=== PATIENT | female | born 1980 | race Caucasian/White ===

== ENCOUNTER 2018-09-26 17:41 | Outpatient (REF) | payer OTHER, SELFPAY ==
[2018-09-26 20:57] LABS: HCT 39.3 % (36.0-46.0); HGB 13.7 g/dL (12.0-15.5); Mean Corp. HGB Concentration 34.9 g/dL (32.0-36.0); Mean Corpuscular Volume 83.1 fL (80-95); Mean Platelet Volume 11.1 fL (8.0-11.0); Platelet Count 304 x1000/uL (130-400); RBC 4.73 m/cumm (4.00-5.20); RBC Distribution Width 12.6 % (11.7-14.6); White Blood Cell Count 7.17 k/cumm (4.4-10.8)
[2018-09-26 21:38] LABS: ALT 52 U/L (12-78); AST 22 U/L (15-37); Albumin 4.3 g/dL (3.4-5.0); Alkaline Phosphatase 92 U/L (46-116); Anion Gap 10.2 mmol/L (3-11); BUN 14 mg/dL (7-18); Bilirubin, Total 0.6 mg/dL (0.2-1.0); CO2 30.8 mmol/L (21.0-32.0); CREATININE 0.95 mg/dL (0.55-1.02); Calcium 9.2 mg/dL (8.5-10.1); Chloride 101 mmol/L (98-107); Glucose 130 mg/dL (70-100); Lipase 195 U/L (73-393); Potassium 3.4 mmol/L (3.5-5.1); Sodium 142 mmol/L (136-145); Total Protein 7.9 g/dL (6.4-8.2)
== END 2018-09-26 18:01 ==
LOC: NCHCN 17:41
PROVIDERS: PCP Family Medicine; Visit Provider Family Medicine
DX: R10.9 Unspecified abdominal pain (principal)
CPT/HCPCS: 80053; 83690; 85027

== ENCOUNTER 2018-09-27 11:10 | Emergency (ER) | payer OTHER, SELFPAY ==
[2018-09-27 11:13] VITALS: BP 119/79; PULSE 77; RESP 12; TEMP 36.8; O2SAT 95
--- NOTE | 2018-09-27 11:37 | ED.GENADUL_ITS ---
Discharge Plan Disposition Patient Disposition: HOME Condition: Stable Discharge Details Chief Complaint: Abd Prob Clinical Impression: Biliary colic Primary Care Provider: Toya Clarke ED Provider: Jazlyn Hayes Home Meds and New Rx's Prescriptions: New ondansetron 4 mg tablet,disintegrating 4 mg PO TID PRN (Reason: nausea and vomiting) Qty: 6 RF: 0 Continued omeprazole 20 mg Capsule,Delayed Release(Dr/Ec) 20 mg PO DAILY RF: 0 losartan-hydrochlorothiazide 50-12.5 mg Tablet 1 tab PO DAILY RF: 0 vitamin B complex Capsule 1 cap PO DAILY RF: 0 cholecalciferol (vitamin D3) [Vitamin D3] 1,000 unit Capsule 1,000 unit PO DAILY RF: 0 Pepcid Complete 10-800-165 mg Tablet,Chewable 1 tab PO DAILY RF: 0 omega 1-icd-ojj-fish oil [Fish Oil] 1,000 mg (120 mg-180 mg) Capsule 1 cap PO DAILY RF: 0 Discharge Instructions Instructions: Biliary Colic (ED), Abdominal Pain (ED) Additional Instructions: Alternate tylenol and motrin as needed and directed for pain. Take the Zofran as needed and directed for any nausea or vomiting. Drink plenty of fluids. Limit your amount of fried and fatty food intake as this may worsen gallstones. Call surgery to schedule follow-up appointment for reevaluation. Return immediately to the emergency department any worsening or new concerning symptoms. Referrals: Maddy Matos MD [ [facility] STAFF PHYSICIAN] - Discharge Data Discharge Date/Time-TO BE ENTERED AT DEPARTURE: 09/27/18 15:02 Discharge Physician: Jazlyn Hayes Medical Decision Making 37yo female with a history of GERD and hypertension who presents with burning right-sided abdominal pain for the past 2-3 weeks. Also with intermittent nausea and diarrhea this week. Seen by PCP office yesterday for same complaint and had lab work done but she does not know the results. No labs noted in computer. Vitals within normal limits. Patient afebrile. She appears nontoxic. Her abdomen is soft but is mildly tender in the right mid abdomen, right lower quadrant, left lower quadrant and epigastric region. No right upper quadrant tenderness. Negative Baker's sign. Differential diagnosis includes cholelithiasis, cholecystitis, appendicitis, diverticulitis, ovarian cyst, gastroenteritis. Will place an IV, labs, UA, CT abd/pelvis and give toradol, zofran, pepcid. 1230 --labs and imaging reviewed. Normal white blood cell count. AST 44, remainder of labs unremarkable. Urine negative. CT abdomen notes possible gallbladder disease due to possible gallbladder contraction and mild gallbladder wall thickening not excluded. Recommends gallbladder ultrasound. This was discussed with radiology and Alejandro will be available at 2pm. 1430 -- US notes multiple gallstones with upper limits of normal gallbladder wall thickness but negative sonographic Baker sign and no evidence of cholecystitis. Normal common bile duct. Patient states her pain is improved and she feels good to go home. She is instructed to follow-up with surgery for reevaluation and to discuss possible elective cholecystectomy if pain persists. Patient instructed to alternate Tylenol Motrin for pain. She is instructed to return here immediately with any concerns such as fever, worsening pain, inability to take p.o. Medical Records Medical records reviewed: Yes I reviewed the patient's medical records. Imaging Data Radiologic Study: Radiologist's impression: CT Abdomen and Pelvis With Contrast EXAM DATE/TIME: 09/27/2018 11:36 AM FINDINGS: Lower thorax: No acute findings. ABDOMEN: Liver: Hepatic size upper limits of normal. Gallbladder and bile ducts: The gallbladder appears partially contracted. Mild wall thickening is not excludable. Pancreas: Normal. No ductal dilation. Spleen: Normal. No splenomegaly. Adrenals: Normal. No mass. Kidneys and ureters: Normal. No hydronephrosis. Stomach and bowel: Normal. No obstruction. No mucosal thickening. Appendix: No evidence of appendicitis. PELVIS: Bladder: Unremarkable as visualized. Reproductive: Tiny low-density right adnexal lesion 1.3 cm, probable dominant follicle. ABDOMEN and PELVIS: Intraperitoneal space: Normal. No free air. No significant fluid collection. Bones/joints: Mild lower lumbar spondylosis. Soft tissues: Unremarkable. Vasculature: Normal. No abdominal aortic aneurysm. Lymph nodes: Shotty mesenteric adenopathy noted. IMPRESSION: Possible gallbladder disease versus artifact of contraction. Consider s onography. Radiologic Study #2: Radiologist's impression: US Abdomen Limited EXAM DATE/TIME: 09/27/2018 2:02 PM FINDINGS: Gallbladder: Multiple, mobile gallstones present. Gallbladder wall thickness upper limits of normal. By report, negative sonographic Baker's sign. Common bile duct: Common duct within normal limits. IMPRESSION: Multiple gallstones. If there is concern for cystic duct patency, radionuclide hepatobiliary imaging is sensitive to characterize. Lab Data Lab results reviewed: Yes I reviewed the patient's lab results. Laboratory Tests Range/Units 09/27/18 09/27/18 09/27/18 11:16 11:39 11:40 WBC (4.4-10.8) k/cumm RBC (4.00-5.20) m/cumm Hgb (12.0-15.5) g/dL Hct (36.0-46.0) % MCV (80-95) fL MCH (27.0-33.0) pg MCHC (32.0-36.0) g/dL RDW (11.7-14.6) % Plt Count (130-400) x1000/uL MPV (8.0-11.0) fL Immature Gran % Neutrophils % Lymphocytes % Monocytes % Eosinophils % Basophils % Absolute Neutrophils (1.2-6.7) k/cumm Absolute Lymphocytes (1.2-3.4) k/cumm Absolute Monocytes (0.11-0.7) k/cumm Absolute Eosinophils (0.0-0.7) k/cumm Absolute Basophils (0.0-0.2) k/cumm Differential Comment Sodium (136-145) mmol/L Potassium (3.5-5.1) mmol/L Chloride (98-107) mmol/L Carbon Dioxide (21.0-32.0) mmol/L Anion Gap (3-11) mmol/L BUN (7-18) mg/dL Creatinine (0.55-1.02) mg/dL Estimated GFR/1.73 m2 (mL/min/1.73m2) Glucose (70-100) mg/dL Calcium (8.5-10.1) mg/dL Magnesium (1.8-2.4) mg/dL 2.1 Total Bilirubin (0.2-1.0) mg/dL AST (15-37) U/L ALT (12-78) U/L Alkaline Phosphatase (46-116) U/L Troponin I (0.00-0.06) ng/mL < 0.02 Total Protein (6.4-8.2) g/dL Albumin (3.4-5.0) g/dL Lipase (73-393) U/L 171 Urine Color Cancelled Yellow Urine Clarity Cancelled Clear Urine pH Cancelled 7.0 Ur Specific Callaway Cancelled 1.020 Urine Protein Cancelled Negative Urine Ketones Cancelled Negative Urine Blood Cancelled Negative Urine Nitrite Cancelled Negative Urine Bilirubin Cancelled Negative Urine Urobilinogen Cancelled 0.2 Ur Leukocyte Esterase Cancelled Negative Urine Glucose Cancelled Negative Range/Units 09/27/18 09/27/18 11:40 11:40 WBC (4.4-10.8) k/cumm 7.52 RBC (4.00-5.20) m/cumm 4.83 Hgb (12.0-15.5) g/dL 14.1 Hct (36.0-46.0) % 39.6 MCV (80-95) fL 82.0 MCH (27.0-33.0) pg 29.2 MCHC (32.0-36.0) g/dL 35.6 RDW (11.7-14.6) % 12.5 Plt Count (130-400) x1000/uL 336 MPV (8.0-11.0) fL 10.0 Immature Gran % 0.3 Neutrophils % 61.2 Lymphocytes % 26.9 Monocytes % 9.4 Eosinophils % 0.9 Basophils % 1.3 Absolute Neutrophils (1.2-6.7) k/cumm 4.60 Absolute Lymphocytes (1.2-3.4) k/cumm 2.02 Absolute Monocytes (0.11-0.7) k/cumm 0.71 H Absolute Eosinophils (0.0-0.7) k/cumm 0.07 Absolute Basophils (0.0-0.2) k/cumm 0.10 Differential Comment Agrees w/ instrument Sodium (136-145) mmol/L 141 Potassium (3.5-5.1) mmol/L 3.4 L Chloride (98-107) mmol/L 101 Carbon Dioxide (21.0-32.0) mmol/L 31.7 Anion Gap (3-11) mmol/L 8.3 BUN (7-18) mg/dL 9 Creatinine (0.55-1.02) mg/dL 0.85 Estimated GFR/1.73 m2 (mL/min/1.73m2) >= 60.00 Glucose (70-100) mg/dL 94 Calcium (8.5-10.1) mg/dL 9.4 Magnesium (1.8-2.4) mg/dL Total Bilirubin (0.2-1.0) mg/dL 0.7 AST (15-37) U/L 44 H ALT (12-78) U/L 76 Alkaline Phosphatase (46-116) U/L 94 Troponin I (0.00-0.06) ng/mL Total Protein (6.4-8.2) g/dL 8.3 H Albumin (3.4-5.0) g/dL 4.3 Lipase (73-393) U/L Urine Color Urine Clarity Urine pH Ur Specific Callaway Urine Protein Urine Ketones Urine Blood Urine Nitrite Urine Bilirubin Urine Urobilinogen Ur Leukocyte Esterase Urine Glucose test negative. HPI General Mode of arrival: ambulatory . Date/Time Provider Initiated Documentation: 09/27/18 11:17 . Limitations to Documentation: no limitations . Information obtained by: patient . HPI Narrative: Patient is a 37-year-old female with a history of GERD and hypertension who presents with right-sided abdominal pain for the past 2-3 weeks. Patient states the pain is been getting progressively worse. Patient describes the pain initially is intermittent and is now constant, stabbing, burning and located to the right of her umbilicus with radiation around to the right upper quadrant and around to the lower abdomen. Patient states she had some pain in her shoulder blades last night but not since then. Patient states the pain is better with sitting up and worse whe n laying down. Patient states she had a low-grade fever 100.91-week ago but this resolved for the past few days. Patient states she has occasionally taken Pepcid and Advil for her symptoms. Patient admits to nausea but denies any vomiting. She does admit to diarrhea a few times earlier this week. She denies chest pain, shortness of breath or urinary symptoms. Related Data Home Medications Medication Instructions Recorded Confirmed Pepcid Complete 1 tab PO DAILY 09/27/18 09/27/18 cholecalciferol (vitamin D3) 1,000 unit PO DAILY 09/27/18 09/27/18 [Vitamin D3] losartan-hydrochlorothiazide 1 tab PO DAILY 09/27/18 09/27/18 omega 5-fdd-jqt-fish oil [Fish Oil] 1 cap PO DAILY 09/27/18 09/27/18 omeprazole 20 mg PO DAILY 09/27/18 09/27/18 ondansetron 4 mg PO TID PRN #6 tab 09/27/18 vitamin B complex 1 cap PO DAILY 09/27/18 09/27/18 Previous Rx's Medication Instructions Recorded ondansetron 4 mg PO TID PRN #6 tab 09/27/18 Allergies Allergy/AdvReac Type Severity Reaction Status Date / Time codeine Allergy Unverified 09/27/18 11:19 General Stated Complaint: Abd Prob STEVIE: 3 Review of Systems Review of Systems All systems reviewed & are unremarkable except as noted in HPI and below Constitutional Reports as per HPI, Denies chills and Denies fever(s) Eyes Denies blurry vision ENT Denies dizziness, Denies sore throat and Denies throat swelling Cardiovascular Denies chest pain and Denies dyspnea Respiratory Denies dyspnea Gastrointestinal Reports abdominal pain, Denies diarrhea, Reports nausea and Denies vomiting Genitourinary Denies hematuria and Denies dysuria Musculoskeletal Denies back pain and Denies numbness Integumentary/Breasts Denies lesions and Denies rash Neurologic Denies dizziness and Denies numbness Allergic/Immunologic Denies throat swelling PFSH Medical History GERD (gastroesophageal reflux disease) (Chronic) HTN (hypertension) (Chronic) Surgical History H/O section (Chronic) Social History Smoking/Tobacco Use Status: Never alcohol intake: never substance use type: does not use Exam Const General: cooperative, healthy appearing and no acute distress [facility] Head: normal to inspection Mouth: oral mucosae normal Eyes General: appearance normal, both eyes and all related structures Neck Neck: normal visual inspection Resp Effort & Inspection: normal respiratory effort and able to speak in complete sentences Auscultation: clear to auscultation bilaterally Cardio Rate: regular rate Rhythm: regular rhythm GI Inspection: normal to inspection Palpation: soft and tender (mild in right mid abdomen, RLQ/LLQ, epigastric region) other (negative heel jar sign); obturator sign negative, psoas sign negative and with no rebound tenderness Auscultation: normal bowel sounds Back/Spine/Pelvis Back: no CVA tenderness Skin General skin exam: no rashes or lesions noted Neuro General: alert, awake and oriented x3 Motor: muscle tone normal throughout Extrem General: normal to inspection, full ROM and no edema Psych Appearance: grossly normal Affect: normal affect Course Vital Signs Temperature 98.2 F 09/27/18 11:13 Pulse 77 09/27/18 11:13 Respiratory Rate 12 09/27/18 11:13 Blood Pressure 119/79 09/27/18 11:13 Pulse Oximetry 95 09/27/18 11:13 Temperature 98.2 F 09/27/18 11:13 Temperature Source Temporal Artery Scan 09/27/18 11:13 Pulse 77 09/27/18 11:13 Respiratory Rate 12 09/27/18 11:13 Respiratory Effort Non-Labored 09/27/18 11:18 Blood Pressure 119/79 09/27/18 11:13 Blood Pressure Position Sitting 09/27/18 11:13 Pulse Oximetry 95 09/27/18 11:13 Oxygen Delivery Method Room Air 09/27/18 11:13 Oxygen Flow Rate 0 09/27/18 11:13 Pain Level 0 09/27/18 11:13 Comment 09/27/18 11:13 Lab/Test Results Lab/Test Results: Laboratory Tests Range/Units 09/27/18 11:16 Urine Color Cancelled Urine Clarity Cancelled Urine pH Cancelled Ur Specific [place] Cancelled Urine Protein Cancelled Urine Ketones Cancelled Urine Blood Cancelled Urine Nitrite Cancelled Urine Bilirubin Cancelled Urine Urobilinogen Cancelled Ur Leukocyte Esterase Cancelled Urine Glucose Cancelled
[2018-09-27 11:49] LABS: Bilirubin Negative (Negative); Blood Negative (Negative); Clarity Clear; Glucose Negative (Negative); Ketones Negative (Negative); Leukocyte Esterase Negative (Negative); Nitrite Negative (Negative); Urobilinogen 0.2 EU/dL (Up TO 0.2)
[2018-09-27 11:51] LABS: Abs Immature Grans 0.02 k/cumm (0.0-0.09); Absolute Eosinophil Count 0.07 k/cumm (0.0-0.7); Absolute Lymphocyte Count 2.02 k/cumm (1.2-3.4); Absolute Monocyte Count 0.71 k/cumm (0.11-0.7); Basophils % 1.3; Eosinophils % 0.9; HCT 39.6 % (36.0-46.0); HGB 14.1 g/dL (12.0-15.5); Immature Grans % 0.3; Lymphocytes % 26.9; Mean Corp. HGB Concentration 35.6 g/dL (32.0-36.0); Mean Corpuscular Hemoglobin 29.2 pg (27.0-33.0); Monocytes % 9.4; Neutrophils % 61.2; Platelet Count 336 x1000/uL (130-400); RBC 4.83 m/cumm (4.00-5.20); RBC Distribution Width 12.5 % (11.7-14.6); White Blood Cell Count 7.52 k/cumm (4.4-10.8)
[2018-09-27] MEDS: Ketorolac 30 MG/ML VIAL IVP (11:52)
[2018-09-27] MEDS: Ondansetron 4 MG/2 ML VIAL IVP (11:52)
[2018-09-27] MEDS: Normal Saline Flush 10 ML SYR IVP (11:53)
[2018-09-27] MEDS: FAMOTIDINE 20 MG/50 ML BAG 200 MG IVPB (11:53)
--- NOTE | 2018-09-27 12:10 | DI.CT_ITS ---
SYMPTOM/DIAGNOSIS: LOWER ABD PAIN, R/O APPENDICITIS VS DIVERTICULITIS ABDOMINAL AND PELVIC CT: 09/27 CT examination of the abdomen and pelvis was performed with intravenous infusion of 100 cc Omnipaque 350. Visualized portions of the lung bases are clear. No free intraperitoneal air is seen. The liver and spleen appear normal. Pancreas appears intact. Gallbladder is partially contracted, question mild wall thickening. No biliary dilatation seen. Adrenals and kidneys are unremarkable in appearance. No evidence of urinary tract obstruction. No abdominal aortic aneurysm seen. No major vascular abnormalities seen. No abdominal or pelvic adenopathy. No significant abdominal wall hernia. Appendix appears normal. No evidence of diverticulitis or bowel obstruction. CONCLUSION: No evidence of acute intra-abdominal process.
[2018-09-27 12:12] LABS: ALT 76 U/L (12-78); AST 44 U/L (15-37); Albumin 4.3 g/dL (3.4-5.0); Alkaline Phosphatase 94 U/L (46-116); Anion Gap 8.3 mmol/L (3-11); BUN 9 mg/dL (7-18); Bilirubin, Total 0.7 mg/dL (0.2-1.0); CO2 31.7 mmol/L (21.0-32.0); CREATININE 0.85 mg/dL (0.55-1.02); Calcium 9.4 mg/dL (8.5-10.1); Chloride 101 mmol/L (98-107); Glucose 94 mg/dL (70-100); Potassium 3.4 mmol/L (3.5-5.1); Sodium 141 mmol/L (136-145); Total Protein 8.3 g/dL (6.4-8.2)
[2018-09-27 12:18] LABS: Lipase 171 U/L (73-393); Magnesium 2.1 mg/dL (1.8-2.4)
[2018-09-27 12:19] LABS: Diff Comment Agrees w/ Instrument; Troponin I < 0.02 ng/mL (0.00-0.06)
[2018-09-27] MEDS: Omnipaque 350 MG/ML 100 ML BTL IJ (12:22)
--- NOTE | 2018-09-27 12:33 | DI.VRAD_ITS ---
EXAM: CT Abdomen and Pelvis With Contrast EXAM DATE/TIME: 09/27/2018 11:36 AM CLINICAL HISTORY: 37 years old, female; Pain; Abdominal pain; Localized; Right upper quadrant (ruq); Patient HX: Ruq pain x2 weeks, nausea no vomiting. TECHNIQUE: Axial computed tomography images of the abdomen and pelvis with intravenous contrast. All CT scans at this facility use at least one of these dose optimization techniques: automated exposure control; mA and/or kV adjustment per patient size (includes targeted exams where dose is matched to clinical indication); or iterative reconstruction. Coronal and sagittal reformatted images were created and reviewed. CONTRAST: 100 ml of omnipaque 350 administered intravenously. COMPARISON: No relevant prior studies available. FINDINGS: Lower thorax: No acute findings. ABDOMEN: Liver: Hepatic size upper limits of normal. Gallbladder and bile ducts: The gallbladder appears partially contracted. Mild wall thickening is not excludable. Pancreas: Normal. No ductal dilation. Spleen: Normal. No splenomegaly. Adrenals: Normal. No mass. Kidneys and ureters: Normal. No hydronephrosis. Stomach and bowel: Normal. No obstruction. No mucosal thickening. Appendix: No evidence of appendicitis. PELVIS: Bladder: Unremarkable as visualized. Reproductive: Tiny low-density right adnexal lesion 1.3 cm, probable dominant follicle. ABDOMEN and PELVIS: Intraperitoneal space: Normal. No free air. No significant fluid collection. Bones/joints: Mild lower lumbar spondylosis. Soft tissues: Unremarkable. Vasculature: Normal. No abdominal aortic aneurysm. Lymph nodes: Shotty mesenteric adenopathy noted. IMPRESSION: Possible gallbladder disease versus artifact of contraction. Consider sonography. COMMENT: Preliminary interpretation is based on receipt of 298 image(s). A final report will be issued subsequently. Dictated and Authenticated by: Sheryl Luke MD. Ordering:JOHN Hobson MD
--- NOTE | 2018-09-27 12:37 | DI.US_ITS ---
SYMPTOM/DIAGNOSIS: GB THICKENING, CONTRACTED, R/O CHOLECYSTITIS ABDOMINAL ULTRASOUND: 09/27/18 The visualized liver parenchyma is normal in appearance. Note is made of multiple gallstones. Gallbladder wall is at the upper limits of normal in thickness at about 3 mm. No biliary dilatation is seen. The pancreas appears intact as visualized. Kidneys and spleen appear normal. Abdominal aorta is of normal diameter. CONCLUSION: Cholelithiasis. Negative sonographic Baker's sign. Gallbladder wall at the upper limits of normal in thickness at 3 mm.
--- NOTE | 2018-09-27 14:14 | DI.VRAD_ITS ---
EXAM: US Abdomen Limited EXAM DATE/TIME: 09/27/2018 2:02 PM CLINICAL HISTORY: 37 years old, female; Signs and symptoms; Other: Ruq pain; ? Contracted gallbladder on CT; R/O cholecystitis TECHNIQUE: Real-time ultrasound of the abdomen with image documentation. Examination is focused on the region of clinical interest. COMPARISON: CT ABDOMEN PELVIS W 09/27/2018 12:05 PM FINDINGS: Gallbladder: Multiple, mobile gallstones present. Gallbladder wall thickness upper limits of normal. By report, negative sonographic Baker's sign. Common bile duct: Common duct within normal limits. IMPRESSION: Multiple gallstones. If there is concern for cystic duct patency, radionuclide hepatobiliary imaging is sensitive to characterize. COMMENT: Preliminary interpretation is based on receipt of 38 image(s). A final report will be issued subsequently. Dictated and Authenticated by: Sheryl Luke MD. Ordering:JOHN Hobson MD
[2018-09-27 15:02] VITALS: BP 128/74; PULSE 77; RESP 12; TEMP 37; O2SAT 97
== END 2018-09-27 15:02 | disposition home or self-care (01) ==
PROVIDERS: Emergency Provider Physician Assistant; PCP Family Medicine
DX: K80.20 Calculus of gallbladder without cholecystitis without obstruction (principal); R11.0 Nausea; R19.7 Diarrhea, unspecified; I10 Essential (primary) hypertension
CPT/HCPCS: 36415; 80053; 81025; 83690; 93005; 96365; 96375; 99285; 74177; 76705; 81003; 83735; 84484; 85025; 93010; J1885; J2405; J3490

== ENCOUNTER → 2018-10-02 14:01 | Outpatient (BNVA) | payer OTHER, SELFPAY | PROVIDERS: PCP Family Medicine; Referring Provider Family Medicine; Visit Provider Physical Therapy Assistant | DX: K80.20 Calculus of gallbladder without cholecystitis without obstruction (principal); I10 Essential (primary) hypertension | CPT/HCPCS: 99213 ==

== ENCOUNTER 2018-10-14 10:19 | Day surgery (SDC) | payer OTHER, SELFPAY ==
[2018-10-14] VITALS (8 sets, daily range): BP systolic 100–134; BP diastolic 64–90; PULSE 54–84; RESP 12–18; TEMP 36.4–37.7; O2SAT 97–100
[2018-10-14] MEDS: Lactated Ringers 1,000 ML 80 ML IV (11:25)
--- NOTE | 2018-10-14 11:37 | W.PM.OP ---
Date of service: 10/14/18 Time of Service: 11:37 Operative Note DATE OF PROCEDURE: 10/14/18 PRE-OP DIAGNOSIS: incarcerated incisional epigastric hernia POST-OP DIAGNOSIS: same PROCEDURE: primary repair of incarcerated incision hernia SURGEON: Leroy Shen III ASSISTING SURGEON: Selam Duran ANESTHESIA: GETA ESTIMATED BLOOD LOSS: 10 PATHOLOGY: other COMPLICATIONS: None Patient was transported to: PACU Patient's condition: stable Indications: 1.9x1.4cm defect measured on ct, option to do open primary repair pt explained the [facility] Findings: large incarcerated incisional hernia Procedure Description: pt underwent TAP abd block, timeout done abd preped and draped local given, ioban applied 3cm incision blunt disection to the hernia the defect was identified and was as big as my index finger there was a considerable incarcerated fat most likely falciform this could not be reduced and this was amputated with cautery the defect was closed with 5 interupted vertical matress o-prolene copious irrigation layered closure of the wound with 2-0 vicryl, 4-0 monocryl and dermabond debriefing done pt dc home pt notified of case findings
[2018-10-14] MEDS: Bupivacaine 0.25% Pres-Free 30 ML VIAL ×2 (14:30→16:00)
[2018-10-14] MEDS: Bupivacaine 0.25% Pres-Free 10 ML VIAL (14:30)
--- NOTE | 2018-10-14 15:55 | GB_PTH ---
PATIENT: DAVID HERNANDEZ LOC: [facility] U#:[id number] AGE/SX: 37/F ROOM: RE10/14/[address]: Leroy Shen III : 1980 BED: DIS: 10/14/2018 SPEC #: [id number] RECD: 10/14/18 17:42 STATUS: ASHELY GE #: [id number] NAGI: 10/14/18 15:[address]: Leroy Shen III DEPT: Surgical Specimen RECD BY: Corine Nova ENTERED: 10/14/18 17:42 SP TYPE: GB OTHR DR: Toya Clarke Tissues: 1 - GALLBLADDER Procedures: GROSS AND MICRO LEVEL 3 Comments: [id number]
[2018-10-14] MEDS: Lidocaine 1% Multi-Dose 50 ML VIAL (16:00)
--- NOTE | 2018-10-14 16:10 | W.PM.DSUDISC ---
Discharge Plan Disposition Patient Disposition: HOME Condition: Stable Discharge Details Reason For Visit: symptomatic Cholecystitis Attending Provider: Leroy Shen III Primary Care Provider: Toya Clarke Home Meds and New Rx's Prescriptions: New tramadol 50 mg tablet 50 mg PO Q6H PRN (Reason: pain) Qty: 14 RF: 0 acetaminophen [Tylenol 8 Hour] 650 mg tablet extended release 650 mg PO Q8H PRN (Reason: fever or pain) Qty: 14 RF: 0 ibuprofen 600 mg tablet 600 mg PO TID PRN (Reason: fever or pain) Qty: 20 RF: 0 Continued omeprazole 20 mg Capsule,Delayed Release(Dr/Ec) 20 mg PO DAILY RF: 0 losartan-hydrochlorothiazide 50-12.5 mg Tablet 1 tab PO DAILY RF: 0 vitamin B complex Capsule 1 cap PO DAILY RF: 0 cholecalciferol (vitamin D3) [Vitamin D3] 1,000 unit Capsule 1,000 unit PO DAILY RF: 0 omega 3-mjq-xny-fish oil [Fish Oil] 1,000 mg (120 mg-180 mg) Capsule 1 cap PO DAILY RF: 0 ondansetron 4 mg tablet,disintegrating 4 mg PO TID PRN (Reason: nausea and vomiting) Qty: 6 RF: 0 elderberry fruit-honey 0.7-3 gram/7.5 mL Liquid RF: 0 Discharge Instructions Referrals: Leroy Shen III, DO [OSTEOPATHIC DOCTOR] - 10/20/18 11:00 am Activity:: Activity as Tolerated Remove Dressings/Wound Care:: 24 hours Shower/Bathe:: 24 hours Diet:: As Tolerated Discharge Orders Discharge Orders: Discharge Order (Routine); Ordered 10/14/18 Ordered By: Leroy Shen III DS: Diagnosis Discharge Diagnosis (1) Symptomatic cholelithiasis: Start date: 10/14/18 Start time: 16:10 Status: Acute
--- NOTE | 2018-10-14 16:17 | W.PM.OP ---
Date of service: 10/14/18 Time of Service: 16:17 Operative Note DATE OF PROCEDURE: 10/14/18 PRE-OP DIAGNOSIS: symptomatic dariela POST-OP DIAGNOSIS: same PROCEDURE: lap dariela SURGEON: Leroy Shen III ASSISTING SURGEON: Selam Duran ANESTHESIA: GETA ESTIMATED BLOOD LOSS: 10 PATHOLOGY: other COMPLICATIONS: Other (bile and stone spillage) Patient was transported to: PACU Patient's condition: stable Indications: pain in ruq Findings: floppy GB with the cystic duct twisted Procedure Description: pt consent obtained, All RBA dw her in detail she received a tap block she had gen anesthesia, time-out done abd prepped and draped in sterile fashion local given and the first port was the supraumbilical placed Hasan the abd inflated to 15mm/mq the three 5mm RUQ placed under direct vision the GB was floppy with an apparent twist at the cystic duct the GB was dissected and a structure behind the node was identified and this was tented and causing the twist of the cystic duct this was isolated and clipped x2 and transected once this was done the cystic duct straightened out and this was easily dissected 2 clips proximal and 2 distal were placed and the duct transected the GB owen at the dome perforated the GB and there was bile and stone spillage this was suctioned up as best we could with 2liters of saline the GB was dissected off the liver bed and placed in the endocatch bag and removed from the abdomen all ports removed under direct vision the facial stitches were tied layered closure of all wound debriefing done
[2018-10-14] MEDS: fentaNYL 100 MCG/2 ML VIAL IVP ×2 (16:35→16:50)
[2018-10-14] MEDS: HYDROmorphone 2 MG/ML VIAL IVP (16:45)
== END 2018-10-14 18:58 | disposition home or self-care (01) ==
PROVIDERS: PCP Family Medicine; Visit Provider Surgery
PROC: 0FT44ZZ Resection of Gallbladder, Percutaneous Endoscopic Approach (ICD-10-PCS; CPT 47562; principal; 2018-10-14 12:00)
DX: K80.10 Calculus of gallbladder with chronic cholecystitis without obstruction (principal); K82.4 Cholesterolosis of gallbladder; R10.11 Right upper quadrant pain; K21.9 Gastro-esophageal reflux disease without esophagitis; I10 Essential (primary) hypertension
CPT/HCPCS: 47562; 76942; 81025; 88304; J0690; J1100; J1885; J2250; J2405; J3010

== ENCOUNTER → 2018-10-20 10:44 | Outpatient (BNVA) | payer OTHER, SELFPAY | PROVIDERS: PCP Family Medicine; Referring Provider Family Medicine; Visit Provider Surgery | DX: Z90.49 Acquired absence of other specified parts of digestive tract; I10 Essential (primary) hypertension; Z48.815 Encounter for surgical aftercare following surgery on the digestive system ==

== ENCOUNTER 2018-10-24 07:40 | Emergency (ER) | payer OTHER, SELFPAY ==
[2018-10-24] VITALS (10 sets, daily range): BP systolic 118–135; BP diastolic 78–85; PULSE 60–77; RESP 9–18; TEMP 37.1; O2SAT 98–100
--- NOTE | 2018-10-24 08:28 | W.ED.GENAD ---
Discharge Plan Disposition Patient Disposition: HOME Condition: Improving Discharge Details Chief Complaint: Abd Prob Clinical Impression: Postoperative abdominal pain Primary Care Provider: Toya Clarke ED Provider: Rolan Crooks Home Meds and New Rx's Prescriptions: No Action omeprazole 20 mg Capsule,Delayed Release(Dr/Ec) 20 mg PO DAILY RF: 0 losartan-hydrochlorothiazide 50-12.5 mg Tablet 1 tab PO DAILY RF: 0 vitamin B complex Capsule 1 cap PO DAILY RF: 0 cholecalciferol (vitamin D3) [Vitamin D3] 1,000 unit Capsule 1,000 unit PO DAILY RF: 0 omega 0-hwn-lxm-fish oil [Fish Oil] 1,000 mg (120 mg-180 mg) Capsule 1 cap PO DAILY RF: 0 ondansetron 4 mg tablet,disintegrating 4 mg PO TID PRN (Reason: nausea and vomiting) Qty: 6 RF: 0 elderberry fruit-honey 0.7-3 gram/7.5 mL Liquid RF: 0 tramadol 50 mg tablet 50 mg PO Q6H PRN (Reason: pain) Qty: 14 RF: 0 acetaminophen [Tylenol 8 Hour] 650 mg tablet extended release 650 mg PO Q8H PRN (Reason: fever or pain) Qty: 14 RF: 0 ibuprofen 600 mg tablet 600 mg PO TID PRN (Reason: fever or pain) Qty: 20 RF: 0 Discharge Instructions Instructions: Abdominal Pain (ED) Additional Instructions: Return to the emergency department for any fever chills, significant abdominal pain or discomfort, nausea vomiting or any further concerns. Otherwise you may continue to take pggi-hqo-gslfwls pain medication as needed for discomfort and follow-up with general surgery as needed. Referrals: [facility] [Provider Group] (Call the office and follow-up with general surgery as needed for any further reassessment. ) Discharge Data Discharge Date/Time-TO BE ENTERED AT DEPARTURE: 10/24/18 13:06 Medical Decision Making Patient presenting to the emergency department for chief complaint of abdominal pain. Patient states that she had a cholecystectomy approximate 10 days ago and this morning was stretching in bed and felt a pulling, tearing sensation in her abdomen with pain radiating to her back that was sudden sharp and intense. Patient took 2 ibuprofen along with her normal medications. She does state some mild associated nausea but all symptoms have started to resolve and there is only a dull ache within the abdomen now. Patient denies any fever chills, vomiting, diarrhea or constipation, or other medical complaints at this time. Physical exam shows a soft nonrigid abdomen with normal active bowel sounds, no palpable mass or hematoma, mild tenderness noted to the right upper quadrant otherwise benign abdominal exam. Given recent surgery I feel that high likelihood of patient disrupting possible sutures postsurgical. Given normal vital signs and unremarkable physical exam except for mild expected tenderness to the right upper quadrant do not feel that any labs or imaging is needed at this time. Consulted with general surgery and Dr. Shen stated he would recommend doing CT abdomen pelvis with oral contrast to evaluate for any postsurgical complications. Reviewed patient's labs and they are unremarkable. Pending CT scan with oral contrast patient did state that she previously had a very small episode after CT scan with IV contrast where she had some redness to her left arm that went away very fast after receiving contrast. Patient denies any swelling of lips tongue or mouth, any difficulty breathing, any diffuse hives. Will monitor patient and give Benadryl for any potential reaction but initially this does not sound anaphylactoid in nature. Just prior to patient going for CT scan she stated some slight discomfort to her external neck but denied any itchy throat, swelling of lips times mouth, any chest pain or difficulty breathing. Physical exam is unremarkable except for subjective sensation. Did speak with radiologist Dr. Jolley whom did recommend patient receive 40 mg of Solu-Medrol prior to study. Patient was also given IV Zantac as precautionary . Consent with patient risk versus benefit of IV contrast for CT scan and she gave verbal consent to proceed with procedure understanding that this may lead to anaphylaxis type reaction but that we would monitor her condition. CT scan was reviewed and interpreted as no acute findings these findings were discussed with radiologist. Patient was reassessed and still continue to report improvement of symptoms. I did speak with Dr. Shen whom stated patient would be safe to be discharged to follow-up with surgical office for any further reassessment as needed. Patient encouraged to use kqem-cow-byfiswq pain medication and return for any new or worsening symptoms. After discussion of diagnosis and plan of care patient has no further needs, questions, or concerns and states clear understanding to return to the emergency department for any worsening symptoms. HPI General Mode of arrival: ambulatory. Date/Time Provider Initiated Documentation: 10/24/18 08:03. Limitations to Documentation: no limitations. Information obtained by: patient, RN notes reviewed and old records reviewed. History of Present Illness 37 year old F presents to the emergency department with the chief complaint of Abdominal pain, described as mild, with intensity rated at 3. Quality is described as aching, and is localized to the right. Patient reports radiation to back. Patient started experiencing this hour(s) (2) and it has been constant (But improving). Patient notes no other symptoms.. Patient did receive the following treatments prior to arrival, NSAID Related Data Home Medications Medication Instructions Recorded Confirmed cholecalciferol (vitamin D3) 1,000 unit PO DAILY 09/27/18 10/24/18 [Vitamin D3] losartan-hydrochlorothiazide 1 tab PO DAILY 09/27/18 10/24/18 omega 5-car-cux-fish oil [Fish Oil] 1 cap PO DAILY 09/27/18 10/24/18 omeprazole 20 mg PO DAILY 09/27/18 10/24/18 ondansetron 4 mg PO TID PRN #6 tab 09/27/18 10/24/18 vitamin B complex 1 cap PO DAILY 09/27/18 10/24/18 acetaminophen [Tylenol 8 Hour] 650 mg PO Q8H PRN #14 tab 10/14/18 10/24/18 elderberry fruit-honey 10/14/18 ibuprofen 600 mg PO TID PRN #20 tab 10/14/18 10/24/18 tramadol 50 mg PO Q6H PRN #14 tab 10/14/18 10/24/18 Previous Rx's Medication Instructions Recorded ondansetron 4 mg PO TID PRN #6 tab 09/27/18 acetaminophen [Tylenol 8 Hour] 650 mg PO Q8H PRN #14 tab 10/14/18 ibuprofen 600 mg PO TID PRN #20 tab 10/14/18 tramadol 50 mg PO Q6H PRN #14 tab 10/14/18 Allergies Allergy/AdvReac Type Severity Reaction Status Date / Time codeine Allergy Unknown Unverified 10/24/18 07:49 General Stated Complaint: Abd Prob STEVIE: 3 Review of Systems Constitutional Denies chills, Denies fever(s) and Denies poor appetite Cardiovascular Denies chest pain and Denies dyspnea Respiratory Denies dyspnea Gastrointestinal Reports as per HPI, Reports abdominal pain, Denies melena, Denies change in bowel habits, Denies constipation, Denies diarrhea, Reports nausea and Denies vomiting Genitourinary Denies hematuria, Denies urinary incontinence, Denies urinary hesitancy and Denies urinary urgency Integumentary/Breasts Denies rash [facility] Medical History Incarcerated incisional hernia (Acute) GERD (gastroesophageal reflux disease) (Chronic) HTN (hypertension) (Chronic) Surgical History Hx laparoscopic cholecystectomy (Resolved 10/14/18) H/O section (Chronic) Social History Smoking/Tobacco Use Status: Never alcohol intake: never substance use type: does not use Exam Const General: cooperative Orientation: alert, awake and oriented x3 Resp Effort & Inspection: normal respiratory effort and able to speak in complete sentences Auscultation: clear to auscultation bilaterally Cardio Rate: regular rate Rhythm: regular rhythm Heart Sounds: S1 normal and S2 normal GI Inspection: incision (3 well healing incisions non-dehisced, no erythema, closed by skin adhesive) Palpation: soft, no hepatosplenomegaly, not firm, no guarding, no masses, no pulsatile masses, not rigid, no splenomegaly and tender in the RUQ Auscultation: normal bowel sounds Back/Spine/Pelvis Back: no CVA tenderness Neuro General: alert, awake, oriented x3, gait normal and moves all extremities Course Vital Signs Temperature 37.1 C 10/24/18 07:46 Pulse 63 10/24/18 07:46 Respiratory Rate 18 10/24/18 07:46 Blood Pressure 118/78 10/24/18 07:46 Pulse Oximetry 98 10/24/18 07:46 Temperature 37.1 C 10/24/18 07:46 Temperature Source Temporal Artery Scan 10/24/18 07:46 Pulse 63 10/24/18 07:46 Respiratory Rate 18 10/24/18 07:46 Respiratory Effort 10/24/18 07:51 Blood Pressure 118/78 10/24/18 07:46 Blood Pressure Position Sitting 10/24/18 07:46 Pulse Oximetry 98 10/24/18 07:46 Oxygen Delivery Method Room Air 10/24/18 07:46 Oxygen Flow Rate 0 10/24/18 07:46 Pain Level 8 10/24/18 07:46 Lab/Test Results Lab/Test Results: POC- Test(urine) Negative
--- NOTE | 2018-10-24 08:30 | NUR.NOTE ---
Nursing Note: Pt. states pain and nausea are better.
--- NOTE | 2018-10-24 08:34 | ED.GENADUL_ITS ---
Discharge Plan Disposition Patient Disposition: HOME Condition: Improving Discharge Details Chief Complaint: Abd Prob Clinical Impression: Postoperative abdominal pain Primary Care Provider: Toya Clarke ED Provider: Rolan Crooks Home Meds and New Rx's Prescriptions: No Action omeprazole 20 mg Capsule,Delayed Release(Dr/Ec) 20 mg PO DAILY RF: 0 losartan-hydrochlorothiazide 50-12.5 mg Tablet 1 tab PO DAILY RF: 0 vitamin B complex Capsule 1 cap PO DAILY RF: 0 cholecalciferol (vitamin D3) [Vitamin D3] 1,000 unit Capsule 1,000 unit PO DAILY RF: 0 omega 6-ujp-mdv-fish oil [Fish Oil] 1,000 mg (120 mg-180 mg) Capsule 1 cap PO DAILY RF: 0 ondansetron 4 mg tablet,disintegrating 4 mg PO TID PRN (Reason: nausea and vomiting) Qty: 6 RF: 0 elderberry fruit-honey 0.7-3 gram/7.5 mL Liquid RF: 0 tramadol 50 mg tablet 50 mg PO Q6H PRN (Reason: pain) Qty: 14 RF: 0 acetaminophen [Tylenol 8 Hour] 650 mg tablet extended release 650 mg PO Q8H PRN (Reason: fever or pain) Qty: 14 RF: 0 ibuprofen 600 mg tablet 600 mg PO TID PRN (Reason: fever or pain) Qty: 20 RF: 0 Discharge Instructions Instructions: Abdominal Pain (ED) Additional Instructions: Return to the emergency department for any fever chills, significant abdominal pain or discomfort, nausea vomiting or any further concerns. Otherwise you may continue to take hore-zau-beidfie pain medication as needed for discomfort and follow-up with general surgery as needed. Referrals: [facility] [Provider Group] (Call the office and follow-up with general surgery as needed for any further reassessment. ) Discharge Data Discharge Date/Time-TO BE ENTERED AT DEPARTURE: 10/24/18 13:06 Medical Decision Making Patient presenting to the emergency department for chief complaint of abdominal pain. Patient states that she had a cholecystectomy approximate 10 days ago and this morning was stretching in bed and felt a pulling, tearing sensation in her abdomen with pain radiating to her back that was sudden sharp and intense. Patient took 2 ibuprofen along with her normal medications. She does state some mild associated nausea but all symptoms have started to resolve and there is only a dull ache within the abdomen now. Patient denies any fever chills, vomiting, diarrhea or constipation, or other medical complaints at this time. Physical exam shows a soft nonrigid abdomen with normal active bowel sounds, no palpable mass or hematoma, mild tenderness noted to the right upper quadrant otherwise benign abdominal exam. Given recent surgery I feel that high likelihood of patient disrupting possible sutures postsurgical. Given normal vital signs and unremarkable physical exam except for mild expected tenderness to the right upper quadrant do not feel that any labs or imaging is needed at this time. Consulted with general surgery and Dr. Shen stated he would recommend doing CT abdomen pelvis with oral contrast to evaluate for any p ostsurgical complications. Reviewed patient's labs and they are unremarkable. Pending CT scan with oral contrast patient did state that she previously had a very small episode after CT scan with IV contrast where she had some redness to her left arm that went away very fast after receiving contrast. Patient denies any swelling of lips tongue or mouth, any difficulty breathing, any diffuse hives. Will monitor patient and give Benadryl for any potential reaction but initially this does not sound anaphylactoid in nature. Just prior to patient going for CT scan she stated some slight discomfort to her external neck but denied any itchy throat, swelling of lips times mouth, any chest pain or difficulty breathing. Physical exam is unremarkable except for subjective sensation. Did speak with radiologist Dr. Jolley whom did recommend patient receive 40 mg of Solu-Medrol prior to study. Patient was also given IV Zantac as precautionary . Consent with patient risk versus benefit of IV c ontrast for CT scan and she gave verbal consent to proceed with procedure understanding that this may lead to anaphylaxis type reaction but that we would monitor her condition. CT scan was reviewed and interpreted as no acute findings these findings were discussed with radiologist. Patient was reassessed and still continue to report improvement of symptoms. I did speak with Dr. Shen whom stated patient would be safe to be discharged to follow-up with surgical office for any further reassessment as needed. Patient encouraged to use xmpm-scf-fzctzay pain medication and return for any new or worsening symptoms. After discussion of diagnosis and plan of care patient has no further needs, questions, or concerns and states clear understanding to return to the emergency department for any worsening symptoms. HPI General Mode of arrival: ambulatory . Date/Time Provider Initiated Documentation: 10/24/18 08:03 . Limitations to Documentation: no limitations . Information obtained by: patient, RN notes reviewed and old records reviewed . History of Present Illness 37 year old F presents to the emergency department with the chief complaint of Abdominal pain, described as mild, with intensity rated at 3. Quality is described as aching, and is localized to the right. Patient reports radiation to back. Patient started experiencing this hour(s) (2) and it has been constant (But improving). Patient notes no other symptoms.. Patient did receive the following treatments prior to arrival, NSAID Related Data Home Medications Medication Instructions Recorded Confirmed cholecalciferol (vitamin D3) 1,000 unit PO DAILY 09/27/18 10/24/18 [Vitamin D3] losartan-hydrochlorothiazide 1 tab PO DAILY 09/27/18 10/24/18 omega 4-cwv-igd-fish oil [Fish Oil] 1 cap PO DAILY 09/27/18 10/24/18 omeprazole 20 mg PO DAILY 09/27/18 10/24/18 ondansetron 4 mg PO TID PRN #6 tab 09/27/18 10/24/18 vitamin B complex 1 cap PO DAILY 09/27/18 10/24/18 acetaminophen [Tylenol 8 Hour] 650 mg PO Q8H PRN #14 tab 10/14/18 10/24/18 elderberry fruit-honey 10/14/18 ibuprofen 600 mg PO TID PRN #20 tab 10/14/18 10/24/18 tramadol 50 mg PO Q6H PRN #14 tab 10/14/18 10/24/18 Previous Rx's Medication Instructions Recorded ondansetron 4 mg PO TID PRN #6 tab 09/27/18 acetaminophen [Tylenol 8 Hour] 650 mg PO Q8H PRN #14 tab 10/14/18 ibuprofen 600 mg PO TID PRN #20 tab 10/14/18 tramadol 50 mg PO Q6H PRN #14 tab 10/14/18 Allergies Allergy/AdvReac Type Severity Reaction Status Date / Time codeine Allergy Unknown Unverified 10/24/18 07:49 General Stated Complaint: Abd Prob STEVIE: 3 Review of Systems Constitutional Denies chills, Denies fever(s) and Denies poor appetite Cardiovascular Denies chest pain and Denies dyspnea Respiratory Denies dyspnea Gastrointestinal Reports as per HPI, Reports abdominal pain, Denies melena, Denies change in bowel habits, Denies constipation, Denies diarrhea, Reports nausea and Denies vomiting Genitourinary Denies hematuria, Denies urinary incontinence, Denies urinary hesitancy and Denies urinary urgency Integumentary/Breasts Denies rash [facility] Medical History Incarcerated incisional hernia (Acute) GERD (gastroesophageal reflux disease) (Chronic) HTN (hypertension) (Chronic) Surgical History Hx laparoscopic cholecystectomy (Resolved 10/14/18) H/O section (Chronic) Social History Smoking/Tobacco Use Status: Never alcohol intake: never substance use type: does not use Exam Const General: cooperative Orientation: alert, awake and oriented x3 Resp Effort & Inspection: normal respiratory effort and able to speak in complete sentences Auscultation: clear to auscultation bilaterally Cardio Rate: regular rate Rhythm: regular rhythm Heart Sounds: S1 normal and S2 normal GI Inspection: incision (3 well healing incisions non-dehisced, no erythema, closed by skin adhesive) Palpation: soft, no hepatosplenomegaly, not firm, no guarding, no masses, no pulsatile masses, not rigid, no splenomegaly and tender in the RUQ Auscultation: normal bowel sounds Back/Spine/Pelvis Back: no CVA tenderness Neuro General: alert, awake, oriented x3, gait normal and moves all extremities Course Vital Signs Temperature 37.1 C 10/24/18 07:46 Pulse 63 10/24/18 07:46 Respiratory Rate 18 10/24/18 07:46 Blood Pressure 118/78 10/24/18 07:46 Pulse Oximetry 98 10/24/18 07:46 Temperature 37.1 C 10/24/18 07:46 Temperature Source Temporal Artery Scan 10/24/18 07:46 Pulse 63 10/24/18 07:46 Respiratory Rate 18 10/24/18 07:46 Respiratory Effort 10/24/18 07:51 Blood Pressure 118/78 10/24/18 07:46 Blood Pressure Position Sitting 10/24/18 07:46 Pulse Oximetry 98 01/18/19 07:46 Oxygen Delivery Method Room Air 10/24/18 07:46 Oxygen Flow Rate 0 10/24/18 07:46 Pain Level 8 10/24/18 07:46 Lab/Test Results Lab/Test Results: POC- Test(urine) Negative
--- NOTE | 2018-10-24 08:37 | DI.CT_ITS ---
SYMPTOMS/DIAGNOSIS: POSTOPERATIVE PAIN CT SCAN OF THE ABDOMEN AND PELVIS: CT scan of the abdomen and pelvis was performed following the uneventful administration of intravenous contrast material. The liver is normal in size. No suspicious hepatic mass is seen. The portal, superior mesenteric and splenic veins are patent. The patient is status post cholecystectomy. There is no biliary ductal dilatation. The spleen is unremarkable as are the pancreas and adrenal glands. The kidneys show normal and symmetric enhancement. No evidence of a solid renal mass or obstruction. The urinary bladder is intact. The reproductive organs are unremarkable as visualized. The bowel shows no evidence of obstruction or inflammation. There is a normal appendix present in the right lower quadrant. The aorta is of normal caliber with minimal atherosclerosis. No significant abdominal or pelvic adenopathy, ascites or pneumoperitoneum is present. There is no evidence of an anterior abdominal wall hernia. Degenerative changes are seen in the spine. IMPRESSION: 1. Status post cholecystectomy. No biliary ductal dilatation. 2. No evidence of an acute abdomen. 3. No evidence of an anterior abdominal wall hernia. The findings were discussed with the emergency department on the date of the examination.
--- NOTE | 2018-10-24 08:47 | NUR.NOTE ---
Nursing Note: MD Shen of surgery is at the bedside.
[2018-10-24 08:48] LABS: Abs Immature Grans 0.02 k/cumm (0.0-0.09); Absolute Basophil Count 0.04 k/cumm (0.0-0.2); Absolute Eosinophil Count 0.23 k/cumm (0.0-0.7); Absolute Lymphocyte Count 1.82 k/cumm (1.2-3.4); Absolute Monocyte Count 0.58 k/cumm (0.11-0.7); Absolute Neutrophil Count 3.07 k/cumm (1.2-6.7); Basophils % 0.7; HCT 38.9 % (36.0-46.0); HGB 13.2 g/dL (12.0-15.5); Immature Grans % 0.3; Lymphocytes % 31.6; Mean Corp. HGB Concentration 33.9 g/dL (32.0-36.0); Mean Corpuscular Hemoglobin 29.3 pg (27.0-33.0); Mean Corpuscular Volume 86.3 fL (80-95); Monocytes % 10.1; Neutrophils % 53.3; Platelet Count 249 x1000/uL (130-400); RBC 4.51 m/cumm (4.00-5.20); RBC Distribution Width 13.6 % (11.7-14.6); White Blood Cell Count 5.76 k/cumm (4.4-10.8)
[2018-10-24 09:01] LABS: ALT 49 U/L (12-78); AST 41 U/L (15-37); Albumin 3.8 g/dL (3.4-5.0); Alkaline Phosphatase 86 U/L (46-116); Anion Gap 9.8 mmol/L (3-11); BUN 10 mg/dL (7-18); Bilirubin, Total 0.7 mg/dL (0.2-1.0); CO2 28.2 mmol/L (21.0-32.0); CREATININE 0.81 mg/dL (0.55-1.02); Calcium 8.8 mg/dL (8.5-10.1); Chloride 104 mmol/L (98-107); Glucose 85 mg/dL (70-100); Potassium 3.8 mmol/L (3.5-5.1); Sodium 142 mmol/L (136-145); Total Protein 7.3 g/dL (6.4-8.2)
[2018-10-24] MEDS: Breeza Beverage 473 ML BTL PO ×2 (09:22→09:24)
[2018-10-24] MEDS: Omnipaque 350 MG/ML 50 ML BTL IJ (09:25)
[2018-10-24] MEDS: Omnipaque 350 MG/ML 100 ML BTL IJ (09:25)
[2018-10-24] MEDS: diphenhydrAMINE 50 MG/ML VIAL IVP (09:29)
[2018-10-24] MEDS: methylPREDNISolone SUCC 40 MG VIAL IVP (10:35)
--- NOTE | 2018-10-24 11:17 | NUR.NOTE ---
Nursing Note: Resting, in no distress. Was pre-medicated because patient complained of some itchiness to right side of neck, no evidence of acute reaction. Pt. feels fine now.
--- NOTE | 2018-10-24 13:04 | NUR.NOTE ---
IV dc'd, patient home with spouse Nursing Note:
== END 2018-10-24 13:06 | disposition home or self-care (01) ==
PROVIDERS: Emergency Provider Nurse Practitioner Family; PCP Family Medicine
DX: G89.18 Other acute postprocedural pain (principal); R10.9 Unspecified abdominal pain
CPT/HCPCS: 36415; 80053; 96374; 96375; 99285; 74177; 85025; 99284; J1200; J3490; Q9967

== ENCOUNTER → 2018-10-28 13:22 | Outpatient (BNVA) | payer OTHER, SELFPAY | PROVIDERS: PCP Family Medicine; Referring Provider Family Medicine; Visit Provider Surgery | DX: Z48.815 Encounter for surgical aftercare following surgery on the digestive system (principal); R10.9 Unspecified abdominal pain; I10 Essential (primary) hypertension | CPT/HCPCS: 99212 ==

== ENCOUNTER 2018-10-30 08:59 | Day surgery (SDC) | payer OTHER, SELFPAY ==
[2018-10-30 09:29] VITALS: BP 127/93; PULSE 86; RESP 20; TEMP 36.9; O2SAT 99
[2018-10-30] MEDS: Lactated Ringers 1,000 ML 80 ML IV (09:46)
[2018-10-30] MEDS: LORazepam 2 MG/ML VIAL 0.5 MG IVP (10:11)
--- NOTE | 2018-10-30 11:35 | ESO_PTH ---
PATIENT: DAVID HERNANDEZ LOC: [facility] U#:[id number] AGE/SX: 38/F ROOM: RE10/30/[address]: Leroy Shen III : 1980 BED: DIS: 10/30/2018 SPEC #: [id number] RECD: 10/30/18 12:52 STATUS: ASHELY GE #: [id number] NAGI: 10/30/18 11:[address]: Leroy Shen III DEPT: Surgical Specimen RECD BY: Corine Nova ENTERED: 10/30/18 12:53 SP TYPE: Annio JAMILA DR: Toya Clarke Tissues: 1 - ESOPHAGUS BIOPSY 2 - STOMACH BIOPSY 3 - STOMACH BIOPSY Procedures: GROSS AND MICRO LEVEL 4 Comments: [id number]
--- NOTE | 2018-10-30 11:49 | W.PM.ENDDOP ---
Date of service: 10/30/18 Time of Service: 11:50 Endoscopy Report DATE OF PROCEDURE: 10/30/18 PRE-OP DIAGNOSIS: epigastric/RUQ pain POST-OP DIAGNOSIS: other (GERD, erosive gastritis at GE juntion) PROCEDURE: EGD SURGEON: Leroy Shen III ANESTHESIA: MAC ESTIMATED BLOOD LOSS: 2 PATHOLOGY: other (GE juction, antrum stomach, pyloris) COMPLICATIONS: None DISPOSITION: PACU INDICATIONS: pain PROCEDURE DESCRIPTION: After informed consent was obtained the patient was take to the procedure room and placed in a supine position. Monitors were applied and a time out was done. The patients name, date of , procedure type, allergies to medications and metal in their body was reviewed. A bite block was placed and the patient was sedated. Once sedated and comfortable the gastroscope was advanced through the oropharynx which was grossly normal into the esophagus. The proximal and mid-esophagus were clean of pathology. In the distal esophagus there was erosive gastritis with white plaques noted, picture taken. The scope was advanced into the stomach and through the pylorus into the 3rd portion of the duodenum. The duodenum was noted to be normal. Biopsies were done at the GE junction the antrum of the stomach and the pylorus. The scope was retracted back into the stomach and biopsies were done to rule out H. pylori. There were ulcerations noted at the GE junction with questionable hiatal hernia. The scope was retroflexed. The cardia and fundus were noted to be normal. There patulous GE junction with questionable hiatal hernia noted. The scope was retracted back into the esophagus and biopsies were done of the GE junction to rule out Hart's. The Z line was regular. The scope was removed and the patient was woken up and taken back to [facility] in stable condition. Follow up: 2 week in the office for referral to party host/hostess and review of pathology
--- NOTE | 2018-10-30 11:55 | ENDO_ITS ---
Date of service: 10/30/18 Time of Service: 11:50 Endoscopy Report DATE OF PROCEDURE: 10/30/18 PRE-OP DIAGNOSIS: epigastric/RUQ pain POST-OP DIAGNOSIS: other (GERD, erosive gastritis at GE juntion) PROCEDURE: EGD SURGEON: Leroy Shen III ANESTHESIA: MAC ESTIMATED BLOOD LOSS: 2 PATHOLOGY: other (GE juction, antrum stomach, pyloris) COMPLICATIONS: None DISPOSITION: PACU INDICATIONS: pain PROCEDURE DESCRIPTION: After informed consent was obtained the patient was take to the procedure room and placed in a supine position. Monitors were applied and a time out was done. The patients name, date of , procedure type, allergies to medications and metal in their body was reviewed. A bite block was placed and the patient was sedated. Once sedated and comfortable the gastroscope was advanced through the oropharynx which was grossly normal into the esophagus. The proximal and mid-esophagus were clean of pathology. In the distal esophagus there was erosive gastritis with white plaques noted, picture taken. The scope was advanced into the stomach and through the pylorus into the 3rd portion of the duodenum. The duodenum was noted to be normal. Biopsies we re done at the GE junction the antrum of the stomach and the pylorus. The scope was retracted back into the stomach and biopsies were done to rule out H. pylori. There were ulcerations noted at the GE junction with questionable hiatal hernia. The scope was retroflexed. The cardia and fundus were noted to be normal. There patulous GE junction with questionable hiatal hernia noted. The scope was retracted back into the esophagus and biopsies were done of the GE junction to rule out Hart's. The Z line was regular. The scope was removed and the patient was woken up and taken back to [facility] in stable condition. Follow up: 2 week in the office for referral to administrator health care facility and review of pathology
--- NOTE | 2018-10-30 11:56 | PDOC.DSDIS_ITS ---
Discharge Plan Disposition Patient Disposition: HOME Condition: Stable Discharge Details Reason For Visit: ABD PAIN Attending Provider: Leroy Shen III Primary Care Provider: Toya Clarke Home Meds and New Rx's Prescriptions: New famotidine [Pepcid AC] 10 mg tablet 10 mg PO BID Qty: 60 RF: 12 Continued omeprazole 20 mg Capsule,Delayed Release(Dr/Ec) 20 mg PO DAILY RF: 0 losartan-hydrochlorothiazide 50-12.5 mg Tablet 1 tab PO DAILY RF: 0 vitamin B complex Capsule 1 cap PO DAILY RF: 0 cholecalciferol (vitamin D3) [Vitamin D3] 1,000 unit Capsule 1,000 unit PO DAILY RF: 0 omega 4-gbn-xpb-fish oil [Fish Oil] 1,000 mg (120 mg-180 mg) Capsule 1 cap PO DAILY RF: 0 ondansetron 4 mg tablet,disintegrating 4 mg PO TID PRN (Reason: nausea and vomiting) Qty: 6 RF: 0 elderberry fruit-honey 0.7-3 gram/7.5 mL Liquid RF: 0 acetaminophen [Tylenol 8 Hour] 650 mg tablet extended release 650 mg PO Q8H PRN (Reason: fever or pain) Qty: 14 RF: 0 ibuprofen 600 mg tablet 600 mg PO TID PRN (Reason: fever or pain) Qty: 20 RF: 0 Discharge Instructions Additional Instructions: Will have her FU with a driver license examiner Referrals: Leroy Shen III, [OSTEOPATHIC DOCTOR] - Activity:: Activity as Tolerated Diet:: As Tolerated Discharge Orders Discharge Orders: Discharge Order (Routine); Ordered 10/30/18 Ordered By: Leroy Shen III DS: Diagnosis Discharge Diagnosis (1) Abdominal pain: Status: Acute (2) Ulcerative mucositis of gastrointestinal tract: Status: Acute (3) GERD (gastroesophageal reflux disease): Status: Chronic
[2018-10-30 12:50] VITALS: BP 120/89; PULSE 76; RESP 16; TEMP 37.3; O2SAT 97
== END 2018-10-30 13:59 | disposition home or self-care (01) ==
PROVIDERS: PCP Family Medicine; Visit Provider Surgery
PROC: 0DJ68ZZ Inspection of Stomach, Via Natural or Artificial Opening Endoscopic (ICD-10-PCS; CPT 43235; principal; 2018-10-30 10:00)
DX: R10.13 Epigastric pain (principal); K21.0 Gastro-esophageal reflux disease with esophagitis; K31.89 Other diseases of stomach and duodenum; K21.9 Gastro-esophageal reflux disease without esophagitis; I10 Essential (primary) hypertension
CPT/HCPCS: 43239; 88305; 93005; 93010; J2060

== ENCOUNTER → 2018-11-10 09:30 | Outpatient (BNVA) | payer OTHER, SELFPAY | PROVIDERS: PCP Family Medicine; Referring Provider Family Medicine; Visit Provider Surgery | DX: K21.9 Gastro-esophageal reflux disease without esophagitis (principal); Z51.89 Encounter for other specified aftercare; B02.9 Zoster without complications; I10 Essential (primary) hypertension ==

== ENCOUNTER 2018-12-24 11:50 | Outpatient (REF) | payer OTHER, SELFPAY ==
[2018-12-30 15:25] LABS: Helicobacter pylori Ag, Feces Negative (NEGAT)
== END 2018-12-24 12:10 ==
LOC: NCHCN 11:50
PROVIDERS: PCP Family Medicine; Visit Provider Nurse Practitioner Family
DX: R10.9 Unspecified abdominal pain (principal)
CPT/HCPCS: 87338